=== PATIENT | male | born 1945 | race Caucasian/White ===

== ENCOUNTER 2016-06-13 15:51 | Emergency (ER) | payer MEDICARE, MEDICAID ==
[~2016-06-13] VITALS: Ht 172.7 cm; Wt 77.3 kg
[~2016-06-13 15:51] MED LIST: CITA20TA9 PO; CLOP75 PO; FURO20 PO; GABA-531 PO; GLIP10 PO; HYDR50 PO; ISOS60TA4 PO; LOSA50TA37 PO; METF500T4 PO; METO50 PO
[2016-06-13 16:07] LABS: GLUCOSE,POINT OF CARE 139 MG/DL (70-110)
[2016-06-13] MEDS ORDERED: LORA10TA7 PO (16:13)
[2016-06-13] MEDS ORDERED: CLON.1 PO (16:13)
[2016-06-13] MEDS ORDERED: AMLO-512 PO (16:13)
[2016-06-13] MEDS ORDERED: FLUT16H NASAL (16:13)
[2016-06-13] MEDS ORDERED: ATOR40TA28 PO (16:13)
[2016-06-13 17:13] VITALS: BP 129/85
[2016-06-13 17:17] LABS: GLUCOSE,POINT OF CARE 131 MG/DL (70-110)
[2016-06-13] MEDS ORDERED: PredniSONE 20 MG TABLET PO ONE (17:30)
== END 2016-06-13 17:44 | disposition home or self-care (01) ==
LOC: EMS 15:52
DX: J01.90 Acute sinusitis, unspecified (principal); B96.89 Other specified bacterial agents as the cause of diseases classified elsewhere; E11.9 Type 2 diabetes mellitus without complications; I10 Essential (primary) hypertension
CPT/HCPCS: 82962; 99283; J7512

== ENCOUNTER 2017-01-21 17:34 | Emergency (ER) | payer MEDICARE, MEDICAID ==
[~2017-01-21] VITALS: Ht 170.2 cm; Wt 72.7 kg
[~2017-01-21 17:34] MED LIST changes: +AMLO-512 PO; +ATOR40TA28 PO; +CLON-570 PO; +FLUT16H NASAL; -GLIP10 PO; +HYDR-2924 PO; -HYDR50 PO; +LORA10TA7 PO; -METF500T4 PO
[2017-01-21] MEDS ORDERED: CITA10TA68 PO (17:47)
[2017-01-21 19:32] VITALS: BP 138/98
[2017-01-21] MEDS ORDERED: TraMADol HCL 50 MG TABLET PO ONE (19:45)
== END 2017-01-21 19:45 | disposition home or self-care (01) ==
LOC: EMS 17:36
DX: J32.9 Chronic sinusitis, unspecified (principal); H72.02 Central perforation of tympanic membrane, left ear; E11.9 Type 2 diabetes mellitus without complications; I10 Essential (primary) hypertension; Z86.73 Personal history of transient ischemic attack (TIA), and cerebral infarction without residual deficits
CPT/HCPCS: 99283

== ENCOUNTER 2017-09-16 13:50 | Emergency (ER) | payer MEDICARE, MEDICAID ==
[~2017-09-16] VITALS: Ht 165.1 cm; Wt 81.4 kg
[~2017-09-16 13:50] MED LIST changes: +CITA10TA68 PO; -CITA20TA9 PO
[2017-09-16] MEDS ORDERED: RISP.5 PO (14:20)
[2017-09-16] MEDS ORDERED: MONT10TA21 PO (14:20)
[2017-09-16] MEDS ORDERED: METF500T6 PO (14:20)
[2017-09-16 14:23] LABS: GLUCOSE,POINT OF CARE 251 MG/DL (70-110)
[2017-09-16 15:09] VITALS: BP 146/70
[2017-09-16] MEDS ORDERED: OXYMETAZOLINE HCL 0.05% 15 ML NASAL SPRAY NASAL ONE (15:15)
== END 2017-09-16 16:16 | disposition home or self-care (01) ==
LOC: EMS 13:51
DX: J31.0 Chronic rhinitis (principal); F03.90 Unspecified dementia, unspecified severity, without behavioral disturbance, psychotic disturbance, mood disturbance, and anxiety; I10 Essential (primary) hypertension; E11.9 Type 2 diabetes mellitus without complications; Z86.73 Personal history of transient ischemic attack (TIA), and cerebral infarction without residual deficits; Z79.899 Other long term (current) drug therapy; Z79.01 Long term (current) use of anticoagulants
CPT/HCPCS: 99282